=== PATIENT | female | born 1940 | race Caucasian/White ===

== ENCOUNTER 2017-02-04 06:41 | Inpatient (IN) | payer OTHER, MEDICARE ==
[2017-02-04] VITALS (10 sets, daily range): BP systolic 127–192; BP diastolic 60–79; PULSE 62–84; RESP 16–18; TEMP 97.9–98.9; O2SAT 97–99
[~2017-02-04] VITALS: Ht 162.6 cm; Wt 73.6 kg
[2017-02-04] MEDS ORDERED: AMLO5TAB2 PO (07:21)
[2017-02-04] MEDS ORDERED: HYDR12.57 PO (07:21)
[2017-02-04] MEDS ORDERED: LISI-515 PO (07:21)
[2017-02-04] MEDS ORDERED: METH2.5T PO (07:21)
[2017-02-04] MEDS ORDERED: SODIUM CHLORIDE 0.9% FLUSH 10 ML FLUSH IV FLUSH PRN ×2 (07:30→12:45)
--- NOTE | 2017-02-04 07:31 | PD ---
HPI Chief Complaint: Abdominal Pain Time Seen by Provider: 07:14 Travel History International Travel<30 days: No Contact w/Intl Traveler<30days: No Traveled to known affect area: No History of Present Illness HPI This is a 76-year-old female who presents today with complaints of abdominal pain. [employer] was offered however patient wanted to use her son and the nurse to interpret for her. Patient reports upper abdominal pain that radiates to her back. She also reports her blood pressure going up and down. When asked what that means, she reports that sometimes her blood pressure is high and sometimes it goes as low as 90 systolic. She denies any chest pain, chest pressure. She denies any shortness of breath. She denies any diarrhea. She does report mild nausea. She denies any urinary symptoms. She does state that she is depressed as she has recently lost her 5 weeks ago. PFSH Past Medical History Diminished Hearing: No Hypertension: Yes Immunizations Current: No Tetanus Vaccination: Unknown Influenza Vaccination: Yes ?: Not Menopausal: Yes Past Surgical History Cholecystectomy: Yes Social History Alcohol Use: No Tobacco Use: No Substance Use: No Allergies-Medications (Allergen,Severity, Reaction): Coded Allergies: Contrast Media (Verified Allergy, Unknown, RASHES/THROAT SWELLING, 02/04/17 ) Iodine (Verified Allergy, Unknown, RASHES/SOB , 02/04/17) Reported Meds & Prescriptions Reported Meds & Active Scripts Active Reported Lisinopril 20 Mg Tab 20 Mg PO DAILY Amlodipine (Amlodipine Besylate) 5 Mg Tab 5 Mg PO DAILY Hydrochlorothiazide 12.5 Mg Cap 12.5 Mg PO DAILY Methotrexate 2.5 Mg Tab 20 Mg PO Q7D Review of Systems Except as stated in HPI: all other systems reviewed are Neg General / Constitutional: No: Fever, Chills HENT: Positive: Headaches (she reports she had a headache 3 weeks ago. She denies headache today), Earache (left earache at times), No: Neck Stiffness, Neck Pain Cardiovascular: No: Chest Pain or Discomfort, Palpitations Respiratory: No: Cough, Shortness of Breath Gastrointestinal: Positive: Nausea, Abdominal Pain (epigastric radiating to her back. She reports it as a 8 out of 10 on the pain scale), No: Vomiting, Diarrhea Genitourinary: No: Frequency, Dysuria Musculoskeletal: No: Weakness, Pain Neurologic: Positive: Headache (3 weeks ago), No: Weakness, Dizziness, Change in Mentation Physical Exam Narrative GENERAL: Well-developed well-nourished female in no acute respiratory distress. SKIN: Focused skin assessment warm/dry. HEAD: Atraumatic. Normocephalic. EYES: Pupils equal and round. No scleral icterus. No injection or drainage. ENT: No nasal bleeding or discharge. Mucous membranes pink and moist. NECK: Trachea midline. Supple. CARDIOVASCULAR: Regular rate and rhythm. No murmur appreciated. RESPIRATORY: No accessory muscle use. Clear to auscultation. Breath sounds equal bilaterally. GASTROINTESTINAL: Abdomen soft, nondistended. The patient has subjective tenderness to palpation in her epigastrium and left and right upper abdominal area. There is no rebound. There are no pulsatile masses appreciated. MUSCULOSKELETAL: No obvious deformities. No clubbing. No cyanosis. No edema. NEUROLOGICAL: Awake and alert. No obvious cranial nerve deficits. Motor grossly within normal limits. Normal speech. Data Data Last Documented VS Vital Signs Date Time Temp Pulse Resp B/P Pulse Ox O2 Delivery O2 Flow Rate FiO2 02/04/17 11:00 66 18 127/60 98 Room Air 02/04/17 06:43 98.9 Orders Complete Blood Count With Diff (02/04/17 07:25) Comprehensive Metabolic Panel (02/04/17 07:25) Lipase (02/04/17 07:25) Urinalysis - C+S If Indicated (02/04/17 07:25) Iv Access Insert/Monitor (02/04/17 07:25) Ecg Monitoring (02/04/17 07:25) Oximetry (02/04/17 07:25) Sodium Chloride 0.9% Flush (Ns Flush) (02/04/17 07:30) Electrocardiogram (02/04/17 07:25) Chest, Single Ap (02/04/17 07:25) Ckmb (Isoenzyme) Profile (02/04/17 07:25) Troponin I (02/04/17 07:25) Oral Contrast - Adult (02/04/17 07:38) Diatrizoate Liq ( Gastroview Liq) (02/04/17 07:54) Ct Abd/Pel W/O Iv Contrast (02/04/17 07:25) Labs Laboratory Tests Test 02/04/17 02/04/17 07:50 07:55 White Blood Count 11.1 TH/MM3 Red Blood Count 4.20 MIL/MM3 Hemoglobin 12.8 GM/DL Hematocrit 39.6 % Mean Corpuscular Volume 94.1 FL Mean Corpuscular Hemoglobin 30.5 PG Mean Corpuscular Hemoglobin 32.4 % Concent Red Cell Distribution Width 15.3 % Platelet Count 243 TH/MM3 Mean Platelet Volume 9.4 FL Neutrophils (%) (Auto) 84.4 % Lymphocytes (%) (Auto) 11.3 % Monocytes (%) (Auto) 3.4 % Eosinophils (%) (Auto) 0.6 % Basophils (%) (Auto) 0.3 % Neutrophils # (Auto) 9.4 TH/MM3 Lymphocytes # (Auto) 1.3 TH/MM3 Monocytes # (Auto) 0.4 TH/MM3 Eosinophils # (Auto) 0.1 TH/MM3 Basophils # (Auto) 0.0 TH/MM3 CBC Comment DIFF FINAL Differential Comment Sodium Level 137 MEQ/L Potassium Level 4.9 MEQ/L Chloride Level 109 MEQ/L Carbon Dioxide Level 19.5 MEQ/L Anion Gap 9 MEQ/L Blood Urea Nitrogen 34 MG/DL Creatinine 1.30 MG/DL Estimat Glomerular Filtration 40 ML/MIN Rate Random Glucose 87 MG/DL Calcium Level 9.1 MG/DL Total Bilirubin 0.5 MG/DL Aspartate Amino Transf 14 U/L (AST/SGOT) Alanine Aminotransferase 18 U/L (ALT/SGPT) Alkaline Phosphatase 105 U/L Total Creatine Kinase 45 U/L Troponin I LESS THAN 0.02 NG/ML Total Protein 7.3 GM/DL Albumin 4.0 GM/DL Lipase 1686 U/L Urine Color YELLOW Urine Turbidity CLEAR Urine pH 6.5 Urine Specific [place] 1.015 Urine Protein NEG mg/dL Urine Glucose (UA) NEG mg/dL Urine Ketones NEG mg/dL Urine Occult Blood NEG Urine Nitrite NEG Urine Bilirubin NEG Urine Urobilinogen LESS THAN 2.0 MG/DL Urine Leukocyte Esterase TRACE Urine RBC LESS THAN 1 /hpf Urine WBC 3 /hpf Urine Hyaline Casts 2 /lpf Microscopic Urinalysis Comment CULT NOT INDICATED MDM Medical Decision Making Medical Screen Exam Complete: Yes Emergency Medical Condition: Yes Differential Diagnosis Pancreatitis versus diverticulitis versus AAA versus transient hypertension versus UTI Narrative Course 76-year-old female presents with abdominal pain. The patient states the pain radiates from her epigastrium down to her back. She denies any fevers, chills. Patient has pancreatitis. Patient also has acute kidney injury. There is also a pancreatic mass at the head of her pancreas noted on CT scan. The patient will be admitted to the hospital for pancreatitis. Her conditions skin and MRI and MRCP of her pancreas. This be done by the admitting physician, Dr. Mcarthur. Diagnosis Primary Impression: Acute pancreatitis Additional Impressions: Acute kidney injury Pancreatic mass Hypertension Admitting Information Admitting Physician Requests: Admit Zack Brown MD Feb 04, 2017 07:31
[2017-02-04] MEDS ORDERED: DIATRIZOATE MEGLUM/DIATRIZOATE SOD 9 ML CUP ONE (07:54)
--- NOTE | 2017-02-04 08:12 | RADRPT ---
EXAM DATE/TIME: 02/04/2017 07:55 [facility] COMPARISON: No previous studies available for comparison. INDICATIONS : Dyspnea. MEDICAL HISTORY : None. SURGICAL HISTORY : None. ENCOUNTER: Initial ACUITY: 1 day PAIN SCORE: 3/10 LOCATION: Bilateral lower chest FINDINGS: A single view of the chest demonstrates the lungs to be symmetrically aerated without evidence of mas s, infiltrate or effusion. There is hyperaeration of both lung santillan. The cardiomediastinal contour s are unremarkable. Osseous structures are intact. CONCLUSION: No acute intrathoracic disease.. Austin Reyna MD on February 04, 2017 at 8:10 Board Certified Radiologist. This report was verified electronically.
[2017-02-04 08:35] LABS: AUTOMATED NEUTROPHIL # 9.4 TH/MM3 (1.8-7.7); BASOPHIL % 0.3 % (0.0-2.0); EOSINOPHIL # 0.1 TH/MM3 (0-0.4); EOSINOPHIL % 0.6 % (0.0-4.0); HEMATOCRIT 39.6 % (35.0-46.0); HEMO FLAGS DIFF FINAL; LYMPH % 11.3 % (9.0-44.0); LYMPHOCYTE # 1.3 TH/MM3 (1.0-4.8); MEAN CELL VOLUME 94.1 FL (80.0-100.0); MEAN CORPUSCULAR HEMOGLOBIN 30.5 PG (27.0-34.0); MEAN CORPUSCULAR HGB CONC 32.4 % (32.0-36.0); MONO % 3.4 % (0.0-8.0); NEUT % 84.4 % (16.0-70.0); PLATELET COUNT 243 TH/MM3 (150-450); RED CELL DISTRIBUTION WIDTH 15.3 % (11.6-17.2); WHITE BLOOD COUNT 11.1 TH/MM3 (4.0-11.0)
[2017-02-04 08:41] LABS: BLOOD, URINE NEG (NEG); GLUCOSE,URINE NEG (NEG); HYALINE CAST, URINE 2 /lpf (RARE); KETONE, URINE NEG (NEG); NITRITE,URINE NEG (NEG); PH, URINE 6.5 (5.0-8.5); URINE COLOR YELLOW (YELLW/STRAW)
[2017-02-04 08:42] LABS: COMMENT (UR) CULT NOT INDICATED; CULTURE IF INDICATED CULT NOT INDICATED
[2017-02-04 08:55] LABS: ANION GAP 9 MEQ/L (5-15); AST (GOT) 14 U/L (15-37); BICARBONATE 19.5 MEQ/L (21.0-32.0); BLOOD UREA NITROGEN 34 MG/DL (7-18); CHLORIDE 109 MEQ/L (98-107); GLOMERULAR FILTRATION RATE 40 ML/MIN (>89); POTASSIUM 4.9 MEQ/L (3.5-5.1); SODIUM (NA) 137 MEQ/L (136-145)
[2017-02-04 08:58] LABS: ALKALINE PHOSPHATASE 105 U/L (45-117); ALT (GPT) 18 U/L (10-53); TOTAL BILIRUBIN ADULT 0.5 MG/DL (0.2-1.0)
[2017-02-04] MEDS ORDERED: DOPamine INJ PREMIX 500 ML IV SCH (09:00)
[2017-02-04] MEDS ORDERED: TERBUTALINE INJ 1 MG/ML AMP SQ PRN (09:00)
[2017-02-04 09:29] LABS: CREATINE KINASE 45 U/L (26-192)
--- NOTE | 2017-02-04 10:44 | RADRPT ---
EXAM DATE/TIME: 02/04/2017 09:42 [facility] COMPARISON: No previous studies available for comparison. INDICATIONS : Upper abdominal pain. ORAL CONTRAST: Prescribed oral contrast ingested. RADIATION DOSE: 16.26 CTDIvol (mGy) MEDICAL HISTORY : Hypertension. SURGICAL HISTORY : Cholecystectomy. ENCOUNTER: Initial ACUITY: 1 day PAIN SCALE: 5/10 LOCATION: Bilateral upper quadrant TECHNIQUE: Volumetric scanning of the abdomen and pelvis was performed. Using automated exposure control and ad justment of the mA and/or kV according to patient size, radiation dose was kept as low as reasonably achievable to obtain optimal diagnostic quality images. DICOM format image data is available electro nically for review and comparison. FINDINGS: There is evidence of a low density mass in the region of the pancreatic head and uncinate process alda suring 3.7 x 2.6 x 5.3 cm which is suspicious for pancreatic neoplasm until proven otherwise. There is dilatation of the main pancreatic duct as well as dilatation of the extrahepatic biliary system al so. MRI of the abdomen with contrast and MRCP would be helpful for confirmation of this suspicious l esion, if clinically indicated. Uncomplicated colonic diverticulosis is noted. There is no acute di verticulitis. Evaluation of the solid organs of the abdomen is limited by the lack of intravenous co ntrast. There are low density lesions within the right kidney measuring 3.5 cm and 1.3 cm consistent with probable cysts. There is a 5 mm calcified nonobstructing right renal calculus. The abdominal aorta is calcified but is not aneurysmally dilated. The inferior vena cava is normal. There is no p araaortic, retroperitoneal or mesenteric lymphadenopathy. No ascites is noted. The uterus and urina ry bladder are unremarkable. Degenerative changes are noted throughout the lumbar and lower thoracic spine. The visualized lung bases are clear. CONCLUSION: 1. Low density mass within the head and uncinate process of the pancreas measuring 3.7 x 2.6 x 5.3 c m which is suspicious for a pancreatic neoplasm until proven otherwise. MRI of the abdomen with cont rast and MRCP may be helpful for further evaluation of this finding, if clinically indicated. There i s dilatation of the main pancreatic duct as well as mild dilatation of the extrahepatic biliary syste m. 2. 5 mm calcified nonobstructing right renal calculus. 3. Right renal cysts. 4. Degenerative changes throughout the lumbar and lower thoracic spine. 5. Uncomplicated colonic diverticulosis. Kayden Talavera MD on February 04, 2017 at 10:22 Board Certified Radiologist. This report was verified electronically.
--- NOTE | 2017-02-04 12:40 | EKG ---
Date Performed: 02/04/2017 Time Performed: 07:41:10 PTAGE: 76 years EKG: Sinus rhythm NORMAL ECG INTERPRETATION BASED ON A DEFAULT AGE OF 40 YEARS NO PREVIOUS TRACING DOCTOR: Ollie Gonzalez Interpretating Date/Time 02/04/2017 12:38:39
[2017-02-04] MEDS ORDERED: NALOXONE HCL 0.4 MG/ML AMP IV PRN (12:45)
[2017-02-04] MEDS ORDERED: ACETAMINOPHEN 325 MG TAB PO PRN ×2 (12:45)
[2017-02-04] MEDS ORDERED: MORPHINE SULFATE 4 MG/ML INJ IV PRN (12:45)
[2017-02-04] MEDS: LACTATED RINGER'S 1000 ML INJ 1,000 ML IV SCH ×2 (13:38→22:33)
[2017-02-04] MEDS: ENOXAPARIN SODIUM 40 MG/0.4 ML SYRINGE SQ SCH (13:40)
[2017-02-04] MEDS: MORPHINE SULFATE 4 MG/ML INJ IV PRN ×3 (14:03→23:54)
--- NOTE | 2017-02-04 14:45 | PD.CONS ---
HPI History of Present Illness This is a 76 year old korean speaking lady who presented to the ER with abdominal pain. The pain started yesterday, in the epigastric region and radiates around the right side to the back, comes and goes, no aggravating or alleviating factors. She is nauseous but no vomiting. Denies diarrhea. She has never had this pain before. She denies any hx liver or pancreas issues. S/ p cholecystectomy. Denies ETOH. (Sophia Gaines) PFSH Past Medical History HTN Past Surgical History cholecystectomy knee replacement bilat (Sophia Gaines) Coded Allergies: Contrast Media (Verified Allergy, Unknown, RASHES/THROAT SWELLING, 02/04/17 ) Iodine (Verified Allergy, Unknown, RASHES/SOB , 02/04/17) Family History none Social History no ETOH no tobacco use no use illicit drugs (Sophia Gaines) Review of Systems Constitutional: DENIES: Fever Eyes: DENIES: Blurred vision Ears, nose, mouth, throat: DENIES: Hearing loss Respiratory: COMPLAINS OF: Cough Cardiovascular: DENIES: Chest pain Gastrointestinal: COMPLAINS OF: Abdominal pain, Nausea, DENIES: Black stools, Bloody stools, Constipation, Diarrhea, Vomiting Genitourinary: DENIES: Hematuria Musculoskeletal: DENIES: Joint Swelling Neurologic: DENIES: Abnormal gait Psychiatric: DENIES: Confusion (Sophia Gaines) GI Exam Vitals I&O Vital Signs Date Time Temp Pulse Resp B/P Pulse Ox O2 Delivery O2 Flow Rate FiO2 02/04/17 11:00 66 18 127/60 98 Room Air 02/04/17 10:04 68 18 155/70 98 Room Air 02/04/17 09:15 64 18 150/66 98 Room Air 02/04/17 08:30 62 18 192/79 98 Room Air 02/04/17 07:29 68 16 164/71 98 Room Air 02/04/17 06:43 98.9 77 16 173/77 97 Room Air Laboratory Test 02/04/17 02/04/17 07:50 07:55 White Blood Count 11.1 TH/MM3 Red Blood Count 4.20 MIL/MM3 Hemoglobin 12.8 GM/DL Hematocrit 39.6 % Mean Corpuscular Volume 94.1 FL Mean Corpuscular Hemoglobin 30.5 PG Mean Corpuscular Hemoglobin 32.4 % Concent Red Cell Distribution Width 15.3 % Platelet Count 243 TH/MM3 Mean Platelet Volume 9.4 FL Neutrophils (%) (Auto) 84.4 % Lymphocytes (%) (Auto) 11.3 % Monocytes (%) (Auto) 3.4 % Eosinophils (%) (Auto) 0.6 % Basophils (%) (Auto) 0.3 % Neutrophils # (Auto) 9.4 TH/MM3 Lymphocytes # (Auto) 1.3 TH/MM3 Monocytes # (Auto) 0.4 TH/MM3 Eosinophils # (Auto) 0.1 TH/MM3 Basophils # (Auto) 0.0 TH/MM3 CBC Comment DIFF FINAL Differential Comment Sodium Level 137 MEQ/L Potassium Level 4.9 MEQ/L Chloride Level 109 MEQ/L Carbon Dioxide Level 19.5 MEQ/L Anion Gap 9 MEQ/L Blood Urea Nitrogen 34 MG/DL Creatinine 1.30 MG/DL Estimat Glomerular Filtration 40 ML/MIN Rate Random Glucose 87 MG/DL Calcium Level 9.1 MG/DL Total Bilirubin 0.5 MG/DL Aspartate Amino Transf 14 U/L (AST/SGOT) Alanine Aminotransferase 18 U/L (ALT/SGPT) Alkaline Phosphatase 105 U/L Total Creatine Kinase 45 U/L Troponin I LESS THAN 0.02 NG/ML Total Protein 7.3 GM/DL Albumin 4.0 GM/DL Lipase 1686 U/L Urine Color YELLOW Urine Turbidity CLEAR Urine pH 6.5 Urine Specific [place] 1.015 Urine Protein NEG mg/dL Urine Glucose (UA) NEG mg/dL Urine Ketones NEG mg/dL Urine Occult Blood NEG Urine Nitrite NEG Urine Bilirubin NEG Urine Urobilinogen LESS THAN 2.0 MG/DL Urine Leukocyte Esterase TRACE Urine RBC LESS THAN 1 /hpf Urine WBC 3 /hpf Urine Hyaline Casts 2 /lpf Microscopic Urinalysis Comment CULT NOT INDICATED Physical Examination HEENT: Pupils round and reactive to light; normocephalic; atraumatic; no jaundice. Throat is clear. NECK: Neck is supple, no JVD, no lymphadenopathy. CHEST: Chest is clear to auscultation and percussion. CARDIAC: Regular rate and rhythm with no murmur gallop or rubs. ABDOMEN: Soft, nondistended, nontender; no hepatosplenomegaly; bowel sounds are present in all four quadrants. EXTREMITIES: No clubbing, cyanosis, or edema. SKIN: Normal; no rash; no jaundice. 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 (Sophia Gaines) Assessment and Plan Plan ASSESSMENT - abdominal pain, nausea - onset 1d ago. radiates to the back. CT showed pancreatic head mass, dilatation main pancreatic duct and extrahepatic biliary system. MRCP pending LFTs WNL. s/p cholecystectomy - elevated lipase - 1686 on admission. denies hx pancreatitis, ETOH PLAN - NPO - await MRCP - CA 19-9, CEA - consider ERCP vs EUS - supportive care - monitor labs - pain control - further recommendations to follow This pt seen by myself and Dr Westfall and this note is written on his behalf (Sophia Gaines) Physician Comments Patient seen and examined Agree with above Continue with current supportive care Monitor labs Most likely will pursue EUS tomorrow (Damon Westfall MD) Sophia Gaines Feb 04, 2017 14:45 Damon Westfall MD Feb 04, 2017 19:57
[2017-02-04] MEDS: ONDANSETRON HCL 4 MG/2 ML VIAL IVP PRN (20:19)
[2017-02-04] MEDS: SODIUM CHLORIDE 0.9% FLUSH 10 ML FLUSH IV FLUSH SCH (20:20)
[2017-02-05] VITALS (7 sets, daily range): BP systolic 132–172; BP diastolic 63–78; PULSE 59–71; RESP 16–20; TEMP 96.9–98.4; O2SAT 95–100
[2017-02-05] MEDS: MORPHINE SULFATE 4 MG/ML INJ IV PRN ×4 (04:20→21:59)
[2017-02-05] MEDS: ONDANSETRON HCL 4 MG/2 ML VIAL IVP PRN ×3 (04:21→18:06)
[2017-02-05 08:33] LABS: ALT (GPT) 18 U/L (10-53); ANION GAP 7 MEQ/L (5-15); AST (GOT) 13 U/L (15-37); BICARBONATE 24.1 MEQ/L (21.0-32.0); BLOOD UREA NITROGEN 26 MG/DL (7-18); CHLORIDE 107 MEQ/L (98-107); POTASSIUM 4.8 MEQ/L (3.5-5.1); SODIUM (NA) 138 MEQ/L (136-145)
[2017-02-05 08:36] LABS: ALKALINE PHOSPHATASE 90 U/L (45-117); INDIRECT BILIRUBIN 0.5 MG/DL (0.0-0.8); TOTAL BILIRUBIN ADULT 0.6 MG/DL (0.2-1.0)
[2017-02-05] MEDS: SODIUM CHLORIDE 0.9% FLUSH 10 ML FLUSH IV FLUSH SCH ×2 (08:37→21:00)
[2017-02-05] MEDS: LACTATED RINGER'S 1000 ML INJ 1,000 ML IV SCH ×2 (08:37→22:05)
[2017-02-05] MEDS ORDERED: PROPOFOL 200 MG/20 ML AMP IV ONE (10:47)
[2017-02-05] MEDS ORDERED: LEVOFLOXACIN 500 MG PREMIX INJ 100 ML IV ONE (11:06)
[2017-02-05] MEDS ORDERED: DO NOT ADM ANY ANTICOAGULANT DRUGS PRN (11:17)
[2017-02-05] MEDS ORDERED: *morphine SULFATE 8 MG/ML PERIprocedure ONLY ONE (11:30)
--- NOTE | 2017-02-05 12:13 | PD.PROCEDR ---
GI Procedure REFERRING PHYSICIAN BELL PROCEDURE PERFORMED EUS with FNA INDICATION FOR PROCEDURE Pancreatic head mass PROCEDURE: The procedure, risks and benefits were discussed with Ms. Bloom and informed consent was obtained. Anesthesia sedated her with Diprivan. She was placed in the left lateral decubitus position. EUS: The Pentax videoscope was introduced through the oropharynx and advanced to the stomach. FINDINGS: The linear endoscopic ultrasound scope was used there was a hypoechoic mass in the head of the pancreas measuring at least 2.5 cm on one axis we were able to obtain good sampling with a fine-needle aspiration No lymphadenopathy noted No vascular invasion noted ESTIMATED BLOOD LOSS: None SPECIMENS REMOVED: Fine-needle aspiration of the pancreatic head mass COMPLICATIONS: None IMPRESSION: Pancreatic head mass hypoechoic probable malignancy no lymphadenopathy and no vascular involvement PLAN: Await biopsy Continue supportive care Damon Westfall MD Feb 05, 2017 12:13
[2017-02-05] MEDS: ENOXAPARIN SODIUM 40 MG/0.4 ML SYRINGE SQ SCH (12:49)
[2017-02-05] MEDS: HYDROCHLOROTHIAZIDE 12.5 MG CAP PO SCH (12:49)
[2017-02-05] MEDS: LISINOPRIL 20 MG TAB PO SCH (12:49)
[2017-02-05] MEDS: amLODIPine BESYLATE 5 MG TAB PO SCH (12:49)
--- NOTE | 2017-02-05 14:53 | HHI.HP ---
[facility] Primary Care Physician No Primary Care Physician Admission Diagnosis acute pancreatitis, pancreatic mass Diagnoses: (1) Acute pancreatitis Diagnosis: Principal (2) Pancreatic mass Diagnosis: Principal Chief Complaint: Abdominal pain Travel History International Travel<30 Days: No Contact w/Intl Traveler <30 Da: No Traveled to Known Affected Are: No History of Present Illness 76-year-old female with a history hypertension presents emergency room completed a 4 day history of worsening epigastric pain and describes the pain as a bandlike pain radiating from her back over through her right upper abdomen area to the epigastric area. She reports associated nausea and vomiting associated with the abdominal pain. She also reports a four-day history of constipation not having a bowel movement. She denies any unusual food intake. She has not had any fevers or chills. Review of Systems Constitutional: COMPLAINS OF: Change in appetite, DENIES: Fatigue, Fever, Chills Endocrine: DENIES: Heat/cold intolerance Eyes: DENIES: Blurred vision, Eye pain, Vision loss Ears, nose, mouth, throat: DENIES: Hearing loss, Nasal discharge, Throat pain, Ear Pain, Sinus Pain Respiratory: DENIES: Cough, Shortness of breath Cardiovascular: DENIES: Chest pain, Palpitations, Dyspnea on Exertion, Lower Extremity Edema Gastrointestinal: COMPLAINS OF: Abdominal pain, Constipation, Nausea, Vomiting , Anorexia, DENIES: Black stools, Bloody stools, Diarrhea Genitourinary: DENIES: Dysuria Musculoskeletal: DENIES: Joint pain, Muscle aches, Stiffness Integumentary: DENIES: Rash Hematologic/lymphatic: DENIES: Bruising, Lymphadenopathy Immunologic/allergic: DENIES: Eczema Neurologic: DENIES: Headache, Localized weakness, Paresthesias Psychiatric: DENIES: Anxiety, Depression, Suicidal Ideation Past Family Social History Past Medical History HTN Asthma GERD Past Surgical History cholecystectomy knee replacement bilat Reported Medications Lisinopril 20 Mg Tab 20 Mg PO DAILY Amlodipine (Amlodipine Besylate) 5 Mg Tab 5 Mg PO DAILY Hydrochlorothiazide 12.5 Mg Cap 12.5 Mg PO DAILY Methotrexate 2.5 Mg Tab 20 Mg PO Q7D Allergies: Coded Allergies: Contrast Media (Verified Allergy, Unknown, RASHES/THROAT SWELLING, 02/04/17 ) Iodine (Verified Allergy, Unknown, RASHES/SOB , 02/04/17) Family History none Social History no ETOH no tobacco use no use illicit drugs Physical Exam Vital Signs Vital Signs Date Time Temp Pulse Resp B/P Pulse Ox O2 Delivery O2 Flow Rate FiO2 02/05/17 13:30 96.9 61 16 155/75 100 02/05/17 12:00 97.6 59 132/63 95 02/05/17 11:45 64 12 140/66 96 Room Air 02/05/17 11:30 63 12 162/65 97 Room Air 02/05/17 11:23 98.2 64 12 149/94 96 Room Air 02/05/17 08:00 97.2 69 20 156/70 98 02/05/17 04:38 97.5 71 18 172/78 99 02/05/17 00:38 97.8 67 16 135/65 99 02/04/17 20:38 98.0 69 16 144/67 98 02/04/17 17:40 100 02/04/17 17:30 97.9 84 18 145/63 97 02/04/17 17:00 74 16 152/67 98 Room Air 02/04/17 16:00 99 Physical Exam GENERAL: This is a well-nourished, well-developed patient, in no apparent distress. SKIN: No rashes, ecchymoses or lesions. Cool and dry. HEAD: Atraumatic. Normocephalic. No temporal or scalp tenderness. EYES: Pupils equal round and reactive. Extraocular motions intact. No scleral icterus. No injection or drainage. ENT: Nose without bleeding, purulent drainage or septal hematoma. Throat without erythema, tonsillar hypertrophy or exudate. Uvula midline. Airway patent. NECK: Trachea midline. No JVD or lymphadenopathy. Supple, nontender, no meningeal signs. CARDIOVASCULAR: Regular rate and rhythm RESPIRATORY: Clear to auscultation. Breath sounds equal bilaterally. No wheezes , rales, or rhonchi. GASTROINTESTINAL: Abdomen soft, epigastric tenderness mild right upper quadrant tenderness no rebound guarding, nondistended. No hepato-splenomegaly, or palpable masses. No guarding. MUSCULOSKELETAL: Extremities without clubbing, cyanosis, or edema. No joint tenderness, effusion, or edema noted. NEUROLOGICAL: Awake and alert to person place and time. Cranial nerves II through XII intact. Motor and sensory grossly within normal limits. Five out of 5 muscle strength in all muscle groups. Normal speech. Laboratory Item Value Date Time CA 19-9 Antigen 19.1 U/ML 02/05/1740 Carcinoembryonic Antigen 1.2 NG/ML 02/05/1740 Laboratory Tests Test 02/05/17 06:40 Sodium Level 138 Potassium Level 4.8 Chloride Level 107 Carbon Dioxide Level 24.1 Anion Gap 7 Blood Urea Nitrogen 26 Creatinine 1.05 Random Glucose 96 Calcium Level 8.7 Total Bilirubin 0.6 Direct Bilirubin 0.1 Indirect Bilirubin 0.5 Aspartate Amino Transf 13 (AST/SGOT) Alanine Aminotransferase 18 (ALT/SGPT) Alkaline Phosphatase 90 Total Protein 6.0 Albumin 3.2 Lipase 5455 Carcinoembryonic Antigen 1.2 CA 19-9 Antigen 19.1 Result Diagram: 02/04/17 0750 02/05/17639 Imaging Last Impressions Chest X-Ray 02/04/17724 Signed Impressions: Service Date/Time: January 07:55 - CONCLUSION: No acute intrathoracic disease.. Austin Reyna MD Abdomen/Pelvis CT 02/04/17724 Signed Impressions: Service Date/Time: January 09:42 - CONCLUSION: 1. Low density mass within the head and uncinate process of the pancreas measuring 3.7 x 2.6 x 5.3 cm which is suspicious for a pancreatic neoplasm until proven otherwise. MRI of the abdomen with contrast and MRCP may be helpful for further evaluation of this finding, if clinically indicated. There is dilatation of the main pancreatic duct as well as mild dilatation of the extrahepatic biliary system. 2. 5 mm calcified nonobstructing right renal calculus. 3. Right renal cysts. 4. Degenerative changes throughout the lumbar and lower thoracic spine. 5. Uncomplicated colonic diverticulosis. Kayden Talavera MD Assessment and Plan Problem List: (1) Acute pancreatitis ICD Code: K85.90 Status: Acute (2) Pancreatic mass ICD Code: K86.9 Status: Acute Assessment and Plan 1. Acute biliary pancreatitis likely due to underlying pancreatic mass. IV fluid hydration supportive care patient is placed on clear liquids overnight and GI consultation place. An EUS with fine-needle aspiration performed on pancreatic mass highly suspicious of malignancy. Continue pain control supportive care, await biopsy. CA-19-9 and CEA levels reviewed. Further recommendations per GI. 2. Hypertension, essentialuncontrolled likely suffered by pain. Restart home antihypertensives and add Vasotec IV when necessary for any uncontrolled pain. 3. History of GERDcontinue PPI 4. DVT prophylaxisLovenox. Physician Certification 2 Midnight Certification Type: Admission for Inpatient Services Order for Inpatient Services The services are ordered in accordance with Medicare regulations or non- Medicare payer requirements, as applicable. In the case of services not specified as inpatient-only, they are appropriately provided as inpatient services in accordance with the 2-midnight benchmark. Estimated LOS (days): 3 days is the estimated time the patient will need to remain in the hospital, assuming treatment plan goals are met and no additional complications. Post-Hospital Plan: Not yet determined Problem Qualifiers (1) Acute pancreatitis: Kera Mcarthur MD Feb 05, 2017 14:53
[2017-02-05] MEDS ORDERED: ENALAPRILAT 1.25 MG/ML VIAL IV PRN (15:00)
[2017-02-05 15:07] LABS: CREATINE KINASE 48 U/L (26-192)
[2017-02-05] MEDS ORDERED: SENNOSIDES 8.6 MG TAB PO PRN (17:00)
[2017-02-05] MEDS ORDERED: MAGNESIUM HYDROXIDE SUSP 30 ML CUP PO PRN (17:00)
[2017-02-05] MEDS ORDERED: LACTULOSE SYRUP 20 GM/30 ML CUP PO PRN (17:00)
[2017-02-05] MEDS ORDERED: MAGNESIUM HYDROXIDE SUSP 30 ML CUP PO ONE (17:15)
[2017-02-05] MEDS: BISACODYL 10 MG SUPP RECTAL PRN (18:06)
--- NOTE | 2017-02-05 18:11 | RADRPT ---
EXAM DATE/TIME: 02/05/2017 17:14 [place] COMPARISON: CT ABDOMEN & PELVIS W/O CONTRAST, February 04, 2017, 9:42. INDICATIONS : Pancreatic mass. CONTRAST: 15 cc Multihance (gadobenate) IV MEDICAL HISTORY : Hypertension. SURGICAL HISTORY : Cholecystectomy. Knee replacement. ENCOUNTER: Initial ACUITY: 1 day PAIN SCORE: 5/10 LOCATION: Upper abdomen TECHNIQUE: Multiplanar, multisequence magnetic resonance imaging of the abdomen was performed. High-resolution 3D dataset was utilized to reconstruct maximum-intensity projection (MIP) images. FINDINGS: There is a multiseptated cystic mass in the region of the uncinate process measures 3.5 cm in si ze. There is dilatation of the pancreatic duct measures 1.2 cm and common bile duct measures 2.1 cm w ith dilatation of the intrahepatic ducts. There is an approximate 1.7 cm area of enhancing nodule adj acent to this mass may be part of this mass. The liver, spleen, adrenals are unremarkable. There are cysts in the kidneys the largest one on the right measures 2.6 cm in size. CONCLUSION: Multiseptated mass in the head of the pancreas in the region of the uncinate process with slight nodu lar enhancement adjacent to it. Underlying cystic neoplasm should be excluded such as IMPN. K. Jagdeep Choudhary MD on February 05, 2017 at 18:05 Board Certified Radiologist. This report was verified electronically.
[2017-02-05] MEDS ORDERED: GADOBENATE DIM PF 529 MG/ML 20ML VIAL (for RAD MRI) IV ONE (18:13)
[2017-02-05] MEDS: DOCUSATE SODIUM 50 MG/SENNA 8.6 MG TAB PO SCH (21:59)
[2017-02-06] VITALS (9 sets, daily range): BP systolic 117–150; BP diastolic 55–72; PULSE 67–76; RESP 16–18; TEMP 97.6–98.9; O2SAT 95–98
[2017-02-06] MEDS: MORPHINE SULFATE 4 MG/ML INJ IV PRN ×3 (01:49→11:32)
[2017-02-06] MEDS: LACTATED RINGER'S 1000 ML INJ 1,000 ML IV SCH ×2 (05:48→14:33)
[2017-02-06] MEDS: ONDANSETRON HCL 4 MG/2 ML VIAL IVP PRN ×3 (05:50→19:06)
[2017-02-06 08:00] LABS: HEMATOCRIT 34.8 % (35.0-46.0); MEAN CELL VOLUME 91.8 FL (80.0-100.0); MEAN CORPUSCULAR HEMOGLOBIN 31.1 PG (27.0-34.0); MEAN CORPUSCULAR HGB CONC 33.9 % (32.0-36.0); PLATELET COUNT 322 TH/MM3 (150-450); RED BLOOD COUNT 3.79 MIL/MM3 (4.00-5.30); RED CELL DISTRIBUTION WIDTH 14.5 % (11.6-17.2); REVIEW FLAG FINAL; WHITE BLOOD COUNT 15.9 TH/MM3 (4.0-11.0)
[2017-02-06 08:31] LABS: ALKALINE PHOSPHATASE 175 U/L (45-117); ALT (GPT) 254 U/L (10-53); ANION GAP 8 MEQ/L (5-15); AST (GOT) 417 U/L (15-37); BICARBONATE 27.1 MEQ/L (21.0-32.0); BLOOD UREA NITROGEN 16 MG/DL (7-18); CHLORIDE 95 MEQ/L (98-107); GLOMERULAR FILTRATION RATE 58 ML/MIN (>89); POTASSIUM 4.1 MEQ/L (3.5-5.1); SODIUM (NA) 130 MEQ/L (136-145); TOTAL BILIRUBIN ADULT 2.5 MG/DL (0.2-1.0)
[2017-02-06] MEDS: LISINOPRIL 20 MG TAB PO SCH (09:31)
[2017-02-06] MEDS: HYDROCHLOROTHIAZIDE 12.5 MG CAP PO SCH (09:31)
[2017-02-06] MEDS: amLODIPine BESYLATE 5 MG TAB PO SCH (09:31)
[2017-02-06] MEDS: DOCUSATE SODIUM 50 MG/SENNA 8.6 MG TAB PO SCH ×2 (09:32→20:22)
[2017-02-06] MEDS: SODIUM CHLORIDE 0.9% FLUSH 10 ML FLUSH IV FLUSH SCH ×2 (09:32→20:19)
[2017-02-06] MEDS: ACETAMINOPHEN/HYDROcodone 325 MG/7.5 MG TAB PO PRN ×2 (09:32→19:11)
[2017-02-06] MEDS: PROMETHAZINE HCL 25 MG TAB PO PRN (11:31)
[2017-02-06] MEDS: ENOXAPARIN SODIUM 40 MG/0.4 ML SYRINGE SQ SCH (11:31)
--- NOTE | 2017-02-06 14:05 | HHI.GIFU ---
Subjective Remarks Patient is sitting in bed eating lunch, accompanied by family. Reports nausea, abd pain but no vomiting (Tona,Wen DUEÑAS) Objective Vitals I&O Vital Signs Date Time Temp Pulse Resp B/P Pulse Ox O2 Delivery O2 Flow Rate FiO2 02/06/17 12:38 98.9 67 18 117/55 95 02/06/17 08:00 73 02/06/17 08:00 97.6 68 18 130/64 98 02/06/17 04:38 98.2 73 16 150/72 97 02/06/17 04:00 71 02/06/17 00:38 98.3 69 16 133/60 98 02/06/17 00:00 69 02/05/17 20:38 98.4 62 16 139/68 100 02/05/17 20:12 68 I/O 02/05/17 02/05/17 02/05/17 02/06/17 02/06/17 02/06/17 07:00 15:00 23:00 07:00 15:00 23:00 Intake Total 520 ml 800 ml 800 ml Balance 520 ml 800 ml 800 ml Intake Oral 120 ml IV Total 800 ml 800 ml Other 400 ml # Voids 2 2 1 2 Laboratory Laboratory Tests Test 02/06/17 06:46 White Blood Count 15.9 Red Blood Count 3.79 Hemoglobin 11.8 Hematocrit 34.8 Mean Corpuscular Volume 91.8 Mean Corpuscular Hemoglobin 31.1 Mean Corpuscular Hemoglobin 33.9 Concent Red Cell Distribution Width 14.5 Platelet Count 322 Mean Platelet Volume 8.3 Sodium Level 130 Potassium Level 4.1 Chloride Level 95 Carbon Dioxide Level 27.1 Anion Gap 8 Blood Urea Nitrogen 16 Creatinine 0.94 Estimat Glomerular Filtration 58 Rate Random Glucose 96 Calcium Level 8.5 Total Bilirubin 2.5 Aspartate Amino Transf 417 (AST/SGOT) Alanine Aminotransferase 254 (ALT/SGPT) Alkaline Phosphatase 175 Total Protein 6.3 Albumin 3.2 Lipase 3995 Imaging Last Impressions Cholangiopancreatography MRI 02/05/17 0000 Signed Impressions: Service Date/Time: Sunday, February 05, 2017 17:14 - CONCLUSION: Multiseptated mass in the head of the pancreas in the region of the uncinate process with slight nodular enhancement adjacent to it. Underlying cystic neoplasm should be excluded such as IMPN. K. Jagdeep Choudhary MD Chest X-Ray 02/04/17724 Signed Impressions: Service Date/Time: January 07:55 - CONCLUSION: No acute intrathoracic disease.. Austin Reyna MD Abdomen/Pelvis CT 02/04/17724 Signed Impressions: Service Date/Time: January 09:42 - CONCLUSION: 1. Low density mass within the head and uncinate process of the pancreas measuring 3.7 x 2.6 x 5.3 cm which is suspicious for a pancreatic neoplasm until proven otherwise. MRI of the abdomen with contrast and MRCP may be helpful for further evaluation of this finding, if clinically indicated. There is dilatation of the main pancreatic duct as well as mild dilatation of the extrahepatic biliary system. 2. 5 mm calcified nonobstructing right renal calculus. 3. Right renal cysts. 4. Degenerative changes throughout the lumbar and lower thoracic spine. 5. Uncomplicated colonic diverticulosis. Kayden Talavera MD Physical Exam HEENT: normocephalic; atraumatic; no jaundice. Throat is clear. NECK: Neck is supple, no JVD, no lymphadenopathy. CHEST: Chest is clear to auscultation and percussion. CARDIAC: Regular rate and rhythm with no murmur gallop or rubs. ABDOMEN: Soft, nondistended, diffused tenderness; no hepatosplenomegaly; bowel sounds are present in all four quadrants. EXTREMITIES: No clubbing, cyanosis, or edema. SKIN: Normal; no rash; no jaundice. SYSTEMS NAVIGATOR: No focal deficits; alert and oriented times three. (Tona,Wen [facility]) Assessment and Plan Plan ASSESSMENT - Pancreatic head mass- abdominal pain, nausea - onset 1d ago. CEA 1.2, CA19- 9 19.1 S/P EUS on (02/05/17) --->Pancreatic head mass hypoechoic probable malignancy no lymphadenopathy and no vascular involvement FNA, cytology pending Cholangiopancreatography MRI 02/05/17 Multiseptated mass in the head of the pancreas in the region of the uncinate process with slight nodular enhancement adjacent to it. Underlying cystic neoplasm should be excluded such as IMPN. CT showed pancreatic head mass, dilatation main pancreatic duct and extrahepatic biliary system. s/p cholecystectomy - Elevated LFTs- These were normal yesterday, but today marked elevation AST 417, ALT 254, ALP 175. Possible secondary to procedure, will monitor - elevated lipase - 1686 on admission, today 3995, this is a decrease from yesterday denies hx pancreatitis, ETOH - Leukocytosis- worsening, possibly secondary to recent procedure PLAN - Low fat diet - Await FNA results - supportive care - Lipase, LFTs, in am - pain control - further recommendations to follow This pt seen by myself and Dr Westfall and this note is written on his behalf (Wen Carbone) Physician Comments Patient seen and examined Agree with above Continue with current supportive care Monitor labs Await pathology (Damon Westfall MD) Wen Carbone Feb 06, 2017 14:05 Damon Westfall MD Feb 06, 2017 18:41
--- NOTE | 2017-02-06 16:21 | EKG ---
Date Performed: 02/05/2017 Time Performed: 13:33:58 PTAGE: 76 years EKG: Sinus rhythm NORMAL ECG PREVIOUS TRACING : 02/04/2017 07.41 Since previous tracing, no significant change. DOCTOR: Enrique Hood Interpretating Date/Time 02/06/2017 16:20:51
--- NOTE | 2017-02-06 17:56 | HHI.PR ---
Subjective Remarks Patient seen this morning. Patient states that abdominal pain about the same as yesterday. Denies any chest pain or shortness of breath. Objective Vital Signs Date Time Temp Pulse Resp B/P Pulse Ox O2 Delivery O2 Flow Rate FiO2 02/06/17 16:38 98.8 69 18 132/67 95 02/06/17 15:53 76 02/06/17 12:38 98.9 67 18 117/55 95 02/06/17 08:00 73 02/06/17 08:00 97.6 68 18 130/64 98 02/06/17 04:38 98.2 73 16 150/72 97 02/06/17 04:00 71 02/06/17 00:38 98.3 69 16 133/60 98 02/06/17 00:00 69 02/05/17 20:38 98.4 62 16 139/68 100 02/05/17 20:12 68 I/O 02/05/17 02/05/17 02/05/17 02/06/17 02/06/17 02/06/17 07:00 15:00 23:00 07:00 15:00 23:00 Intake Total 520 ml 800 ml 800 ml Output Total 300 ml Balance 520 ml 800 ml 800 ml -300 ml Intake Oral 120 ml IV Total 800 ml 800 ml Other 400 ml Output Urine Total 300 ml # Voids 2 2 1 2 Result Diagram: 02/06/1746 02/06/1746 Objective Remarks GENERAL: Patient sitting up in bed. No acute distress. SKIN: Warm and dry. HEAD: Normocephalic. EYES: No scleral icterus. No injection or drainage. NECK: Supple, trachea midline. No JVD. CARDIOVASCULAR: Regular rate and rhythm without murmurs, gallops, or rubs. RESPIRATORY: Breath sounds equal bilaterally. No accessory muscle use. GASTROINTESTINAL: Abdomen soft, non-tender, nondistended. No rebound or guarding. MUSCULOSKELETAL: No cyanosis, or edema. BACK: Nontender without obvious deformity. No CVA tenderness. A/P Assessment and Plan //Acute biliary pancreatitis likely due to underlying pancreatic mass. -Continue IV fluid hydration supportive care. -02/05 An EUS with fine-needle aspiration performed on pancreatic mass highly suspicious of malignancy. -Continue pain control supportive care, await biopsy. CA-19-9 and CEA levels reviewed. -GI following. Appreciate assistance. //Hypertension, essentialuncontrolled on admission likely exacerbated by pain. -02/06. Blood pressure acceptable. Continue home antihypertensives. Continue Vasotec IV when necessary for any uncontrolled pain. //Leukocytosis. White blood cell up to 15.9 today. Likely secondary to stress from EUS with FNA. //History of GERDcontinue PPI //Hypernatremia. Sodium 130 today. We'll switch from lactated Ringer's to normal saline. Recheck tomorrow // DVT prophylaxisLovenox. Discharge Planning When cleared by GI. Cytology still pending. Ravi Richards MD Feb 06, 2017 17:56
[2017-02-06] MEDS: SODIUM CHLOR 0.9% 1000 ML INJ 1,000 ML IV SCH (18:00)
[2017-02-06] MEDS: PANTOPRAZOLE SOD 40 MG DELAYED RELEASE TAB PO SCH (18:00)
[2017-02-07] VITALS (9 sets, daily range): BP systolic 108–135; BP diastolic 56–75; PULSE 63–99; RESP 17–18; TEMP 97.3–98.9; O2SAT 96–99
[2017-02-07] MEDS: SODIUM CHLOR 0.9% 1000 ML INJ 1,000 ML IV SCH ×2 (05:55→07:12)
[2017-02-07 06:53] LABS: AUTOMATED NEUTROPHIL # 8.5 TH/MM3 (1.8-7.7); BASOPHIL % 0.1 % (0.0-2.0); EOSINOPHIL # 0.1 TH/MM3 (0-0.4); EOSINOPHIL % 0.6 % (0.0-4.0); HEMATOCRIT 35.4 % (35.0-46.0); HEMO FLAGS DIFF FINAL; LYMPHOCYTE # 0.7 TH/MM3 (1.0-4.8); MEAN CELL VOLUME 92.7 FL (80.0-100.0); MEAN CORPUSCULAR HEMOGLOBIN 30.9 PG (27.0-34.0); MEAN CORPUSCULAR HGB CONC 33.3 % (32.0-36.0); MONO % 5.8 % (0.0-8.0); NEUT % 86.5 % (16.0-70.0); PLATELET COUNT 286 TH/MM3 (150-450); RED BLOOD COUNT 3.81 MIL/MM3 (4.00-5.30); RED CELL DISTRIBUTION WIDTH 14.7 % (11.6-17.2); WHITE BLOOD COUNT 9.8 TH/MM3 (4.0-11.0)
[2017-02-07 07:10] LABS: MAGNESIUM 2.2 MG/DL (1.5-2.5); POTASSIUM 4.7 MEQ/L (3.5-5.1)
[2017-02-07 07:14] LABS: INDIRECT BILIRUBIN 0.5 MG/DL (0.0-0.8); TOTAL BILIRUBIN ADULT 0.9 MG/DL (0.2-1.0)
[2017-02-07] MEDS: SODIUM CHLORIDE 0.9% FLUSH 10 ML FLUSH IV FLUSH SCH ×2 (09:00→19:59)
--- NOTE | 2017-02-07 09:07 | HHI.PR ---
Subjective Remarks No acute events overnight. AVSS. Patient with no complaints this morning. Tolerating PO. States her abdominal pain is improving. Objective Vitals Vital Signs Date Time Temp Pulse Resp B/P Pulse Ox O2 Delivery O2 Flow Rate FiO2 02/07/17 08:43 98.0 63 18 133/70 98 02/07/17 04:00 98.5 65 18 112/56 96 02/07/17 00:00 98.9 66 17 135/63 96 02/06/17 20:11 16 02/06/17 20:00 98.8 71 18 142/71 97 02/06/17 16:38 98.8 69 18 132/67 95 02/06/17 15:53 76 02/06/17 12:38 98.9 67 18 117/55 95 I/O 02/06/17 02/06/17 02/06/17 02/07/17 02/07/17 02/07/17 07:00 15:00 23:00 07:00 15:00 23:00 Intake Total 800 ml 120 ml 120 ml 820 ml Output Total 300 ml Balance 800 ml -180 ml 120 ml 820 ml Intake Oral 120 ml 120 ml IV Total 800 ml 820 ml Output Urine Total 300 ml # Voids 2 2 1 # Bowel Movements 0 0 Result Diagram: 02/07/17 0603 02/07/17 0603 Objective Remarks GENERAL: Patient sitting up in bed. No acute distress. SKIN: Warm and dry. HEAD: Normocephalic. EYES: No scleral icterus. No injection or drainage. NECK: Supple, trachea midline. No JVD. CARDIOVASCULAR: Regular rate and rhythm without murmurs, gallops, or rubs. RESPIRATORY: Breath sounds equal bilaterally. No accessory muscle use. GASTROINTESTINAL: Abdomen soft, non-tender, nondistended. No rebound or guarding. MUSCULOSKELETAL: No cyanosis, or edema. BACK: Nontender without obvious deformity. No CVA tenderness. A/P Problem List: (1) Acute pancreatitis ICD Code: K85.90 Status: Acute (2) Pancreatic mass ICD Code: K86.9 Status: Acute Assessment and Plan //Acute biliary pancreatitis likely due to underlying pancreatic mass. -Tolerating PO, DC IVFs -02/05 An EUS with fine-needle aspiration performed on pancreatic mass highly suspicious of malignancy. -Continue pain control supportive care, await biopsy. CA-19-9 and CEA levels reviewed. -GI following. Appreciate assistance. //Hypertension, essentialuncontrolled on admission likely exacerbated by pain. -02/06. Blood pressure acceptable. Continue home antihypertensives. Continue Vasotec IV when necessary for any uncontrolled pain. //Leukocytosis. Resolved. Likely secondary to stress from EUS with FNA. //History of GERDcontinue PPI //Hypernatremia. Resolved. // DVT prophylaxisLovenox. Discharge Planning When cleared by GI. Awaiting biopsy/cytology. Problem Qualifiers (1) Acute pancreatitis: Cara Mcdonough MD R3 Feb 07, 2017 09:07
[2017-02-07] MEDS: amLODIPine BESYLATE 5 MG TAB PO SCH (09:14)
[2017-02-07] MEDS: LISINOPRIL 20 MG TAB PO SCH (09:15)
[2017-02-07] MEDS: HYDROCHLOROTHIAZIDE 12.5 MG CAP PO SCH (09:15)
[2017-02-07] MEDS: DOCUSATE SODIUM 50 MG/SENNA 8.6 MG TAB PO SCH ×2 (09:16→21:00)
[2017-02-07] MEDS: PANTOPRAZOLE SOD 40 MG DELAYED RELEASE TAB PO SCH (09:16)
[2017-02-07] MEDS: PROMETHAZINE HCL 25 MG TAB PO PRN (09:21)
--- NOTE | 2017-02-07 12:10 | HHI.GIFU ---
Subjective Remarks Lying in bed in no apparent distress. Family member present at bedside. States abdominal pain improving. No nausea or vomiting. Tolerating diet. (Apolonia Aggarwal) Objective Vitals I&O Vital Signs Date Time Temp Pulse Resp B/P Pulse Ox O2 Delivery O2 Flow Rate FiO2 02/07/17 08:43 98.0 63 18 133/70 98 02/07/17 04:00 98.5 65 18 112/56 96 02/07/17 00:00 98.9 66 17 135/63 96 02/06/17 20:11 16 02/06/17 20:00 98.8 71 18 142/71 97 02/06/17 16:38 98.8 69 18 132/67 95 02/06/17 15:53 76 02/06/17 12:38 98.9 67 18 117/55 95 I/O 02/06/17 02/06/17 02/06/17 02/07/17 02/07/17 02/07/17 06:59 14:59 22:59 06:59 14:59 22:59 Intake Total 800 ml 120 ml 120 ml 820 ml Output Total 300 ml Balance 800 ml -180 ml 120 ml 820 ml Intake Oral 120 ml 120 ml IV Total 800 ml 820 ml Output Urine Total 300 ml # Voids 2 2 1 # Bowel Movements 0 0 Laboratory Laboratory Tests Test 02/07/17 06:03 White Blood Count 9.8 Red Blood Count 3.81 Hemoglobin 11.8 Hematocrit 35.4 Mean Corpuscular Volume 92.7 Mean Corpuscular Hemoglobin 30.9 Mean Corpuscular Hemoglobin 33.3 Concent Red Cell Distribution Width 14.7 Platelet Count 286 Mean Platelet Volume 7.6 Neutrophils (%) (Auto) 86.5 Lymphocytes (%) (Auto) 7.0 Monocytes (%) (Auto) 5.8 Eosinophils (%) (Auto) 0.6 Basophils (%) (Auto) 0.1 Neutrophils # (Auto) 8.5 Lymphocytes # (Auto) 0.7 Monocytes # (Auto) 0.6 Eosinophils # (Auto) 0.1 Basophils # (Auto) 0.0 CBC Comment DIFF FINAL Differential Comment Sodium Level 136 Potassium Level 4.7 Chloride Level 102 Carbon Dioxide Level 28.0 Anion Gap 6 Blood Urea Nitrogen 16 Creatinine 1.10 Estimat Glomerular Filtration 49 Rate Random Glucose 94 Calcium Level 8.6 Phosphorus Level 3.1 Magnesium Level 2.2 Total Bilirubin 0.9 Direct Bilirubin 0.4 Indirect Bilirubin 0.5 Aspartate Amino Transf 179 (AST/SGOT) Alanine Aminotransferase 304 (ALT/SGPT) Alkaline Phosphatase 173 Total Protein 5.9 Albumin 3.0 Lipase 1042 Imaging Last Impressions Cholangiopancreatography MRI 02/05/17 0000 Signed Impressions: Service Date/Time: Sunday, February 05, 2017 17:14 - CONCLUSION: Multiseptated mass in the head of the pancreas in the region of the uncinate process with slight nodular enhancement adjacent to it. Underlying cystic neoplasm should be excluded such as IMPN. K. Jagdeep Choudhary MD Chest X-Ray 02/04/17724 Signed Impressions: Service Date/Time: January 07:55 - CONCLUSION: No acute intrathoracic disease.. Austin Reyna MD Abdomen/Pelvis CT 02/04/17724 Signed Impressions: Service Date/Time: January 09:42 - CONCLUSION: 1. Low density mass within the head and uncinate process of the pancreas measuring 3.7 x 2.6 x 5.3 cm which is suspicious for a pancreatic neoplasm until proven otherwise. MRI of the abdomen with contrast and MRCP may be helpful for further evaluation of this finding, if clinically indicated. There is dilatation of the main pancreatic duct as well as mild dilatation of the extrahepatic biliary system. 2. 5 mm calcified nonobstructing right renal calculus. 3. Right renal cysts. 4. Degenerative changes throughout the lumbar and lower thoracic spine. 5. Uncomplicated colonic diverticulosis. Kayden Talavera MD Physical Exam HEENT: PERRLA, normocephalic; atraumatic; no jaundice. Throat is clear. NECK: Neck is supple, no JVD, no lymphadenopathy. CHEST: CTA CARDIAC: RRR with no murmur gallop or rubs. ABDOMEN: Soft, nondistended, diffused tenderness; no hepatosplenomegaly; bowel sounds x 4 quadrants EXTREMITIES: No clubbing, cyanosis, or edema. SKIN: Normal; no rash; no jaundice. JIG BUILDER: No focal deficits; alert and oriented x 3 (Apolonia Aggarwal) Assessment and Plan Plan ASSESSMENT - Pancreatic head mass, patient presented with abdominal pain, nausea CEA 1.2 , CA19-9 19.1 S/P EUS on (02/05/17) --->Pancreatic head mass hypoechoic probable malignancy no lymphadenopathy and no vascular involvement FNA, cytology pending. Cholangiopancreatography MRI 02/05/17 Multiseptated mass in the head of the pancreas in the region of the uncinate process with slight nodular enhancement adjacent to it. Underlying cystic neoplasm should be excluded such as IMPN. CT showed pancreatic head mass, dilatation main pancreatic duct and extrahepatic biliary system. s/p cholecystectomy - Elevated LFTs- AST 417, ALT 254, ALK PHOS 175 (02/06), Trending down today, AST 179, ALT 304, ALK PHOS 173 (02/07) Possible secondary to procedure, will monitor - Elevated lipase - 1686 on admission, 02/06 3995, 02/07 1042. Denies hx pancreatitis, ETOH - Leukocytosis- Improving, WBC 9.8 today. PLAN - Low fat diet - Await FNA results - Supportive care - Lipase, LFTs, in am - Supportive care - Further recommendations to follow based on results of above Patient seen and examined by Dr. Westfall and myself and this note is written on his behalf. (Apolonia Aggarwal) Physician Comments Patient seen and examined Agree with above Continue with current supportive care Monitor labs Await pathology (Damon Westfall MD) Apolonia Aggarwal Feb 07, 2017 12:10 Damon Westfall MD Feb 07, 2017 20:46
[2017-02-07] MEDS: ENOXAPARIN SODIUM 40 MG/0.4 ML SYRINGE SQ SCH (13:20)
[2017-02-07] MEDS: ACETAMINOPHEN/HYDROcodone 325 MG/5 MG TAB PO PRN (23:14)
[2017-02-08] VITALS (8 sets, daily range): BP systolic 114–131; BP diastolic 56–70; PULSE 59–82; RESP 16–20; TEMP 96.4–98; O2SAT 98–100
[2017-02-08 07:05] LABS: AUTOMATED NEUTROPHIL # 6.3 TH/MM3 (1.8-7.7); BASOPHIL % 0.1 % (0.0-2.0); EOSINOPHIL # 0.1 TH/MM3 (0-0.4); EOSINOPHIL % 1.1 % (0.0-4.0); HEMATOCRIT 31.3 % (35.0-46.0); HEMO FLAGS DIFF FINAL; LYMPH % 10.1 % (9.0-44.0); LYMPHOCYTE # 0.8 TH/MM3 (1.0-4.8); MEAN CELL VOLUME 92.4 FL (80.0-100.0); MEAN CORPUSCULAR HEMOGLOBIN 31.6 PG (27.0-34.0); MEAN CORPUSCULAR HGB CONC 34.1 % (32.0-36.0); MONO % 7.1 % (0.0-8.0); NEUT % 81.6 % (16.0-70.0); PLATELET COUNT 255 TH/MM3 (150-450); RED BLOOD COUNT 3.39 MIL/MM3 (4.00-5.30); RED CELL DISTRIBUTION WIDTH 15.3 % (11.6-17.2); WHITE BLOOD COUNT 7.7 TH/MM3 (4.0-11.0)
[2017-02-08 07:27] LABS: ANION GAP 7 MEQ/L (5-15); AST (GOT) 51 U/L (15-37); BICARBONATE 26.6 MEQ/L (21.0-32.0); BLOOD UREA NITROGEN 20 MG/DL (7-18); CHLORIDE 107 MEQ/L (98-107); GLOMERULAR FILTRATION RATE 53 ML/MIN (>89); POTASSIUM 4.6 MEQ/L (3.5-5.1); SODIUM (NA) 141 MEQ/L (136-145)
[2017-02-08 07:28] LABS: ALT (GPT) 182 U/L (10-53)
[2017-02-08 07:30] LABS: ALKALINE PHOSPHATASE 140 U/L (45-117); TOTAL BILIRUBIN ADULT 0.5 MG/DL (0.2-1.0)
--- NOTE | 2017-02-08 08:16 | HHI.PR ---
Subjective Remarks Pt tells me her abdominal pain has resolved. denies any CP/SOB/N/V would like to have breakfast but hasn't yet received her tray Objective Vitals Vital Signs Date Time Temp Pulse Resp B/P Pulse Ox O2 Delivery O2 Flow Rate FiO2 02/08/17 04:46 63 02/08/17 04:00 97.0 61 16 131/70 98 02/08/17 00:13 59 02/07/17 23:57 97.3 64 18 115/64 99 02/07/17 20:12 99 02/07/17 20:00 97.4 81 18 127/75 98 02/07/17 16:00 97.3 68 18 108/58 99 02/07/17 12:41 98.3 73 18 108/64 98 02/07/17 09:00 74 02/07/17 08:43 98.0 63 18 133/70 98 I/O 02/07/17 02/07/17 02/07/17 02/08/17 02/08/17 02/08/17 06:59 14:59 22:59 06:59 14:59 22:59 Intake Total 120 ml 1060 ml 1170 ml 120 ml Balance 120 ml 1060 ml 1170 ml 120 ml Intake Oral 120 ml 240 ml 240 ml 120 ml IV Total 820 ml 930 ml # Voids 1 1 1 1 # Bowel Movements 0 2 0 0 Result Diagram: 02/08/17 0604 02/08/17 0604 Imaging Last Impressions Cholangiopancreatography MRI 02/05/17 0000 Signed Impressions: Service Date/Time: Sunday, February 05, 2017 17:14 - CONCLUSION: Multiseptated mass in the head of the pancreas in the region of the uncinate process with slight nodular enhancement adjacent to it. Underlying cystic neoplasm should be excluded such as IMPN. K. Jagdeep Choudhary MD Chest X-Ray 02/04/17724 Signed Impressions: Service Date/Time: January 07:55 - CONCLUSION: No acute intrathoracic disease.. Austin Reyna MD Abdomen/Pelvis CT 02/04/17724 Signed Impressions: Service Date/Time: January 09:42 - CONCLUSION: 1. Low density mass within the head and uncinate process of the pancreas measuring 3.7 x 2.6 x 5.3 cm which is suspicious for a pancreatic neoplasm until proven otherwise. MRI of the abdomen with contrast and MRCP may be helpful for further evaluation of this finding, if clinically indicated. There is dilatation of the main pancreatic duct as well as mild dilatation of the extrahepatic biliary system. 2. 5 mm calcified nonobstructing right renal calculus. 3. Right renal cysts. 4. Degenerative changes throughout the lumbar and lower thoracic spine. 5. Uncomplicated colonic diverticulosis. Kayden Talavera MD Objective Remarks GENERAL: Patient sitting up in bed. appears comfortable. SKIN: Warm and dry. HEAD: Normocephalic. EYES: EOMI NECK: Supple, trachea midline. CARDIOVASCULAR: Regular rate and rhythm without murmurs RESPIRATORY: Breath sounds equal bilaterally. No accessory muscle use. GASTROINTESTINAL: Abdomen soft, non-tender, nondistended. No rebound or guarding. MUSCULOSKELETAL: No cyanosis, or edema. A/P Problem List: (1) Acute pancreatitis ICD Code: K85.90 Status: Acute (2) Pancreatic mass ICD Code: K86.9 Status: Acute Assessment and Plan /Acute biliary pancreatitis likely due to underlying pancreatic mass. -Tolerating PO, off IVFs -02/05 An EUS with fine-needle aspiration performed on pancreatic mass highly suspicious of malignancy. -Continue pain control supportive care, awaiting biopsy result. CA-19-9 and CEA levels wnl, lipase trending down. -GI following. Appreciate assistance. //Hypertension, essentialuncontrolled on admission likely exacerbated by pain. -02/06. Blood pressure acceptable. Continue home antihypertensives. Continue Vasotec IV when necessary for any uncontrolled pain. //Leukocytosis. Resolved. Likely secondary to stress from EUS with FNA. //History of GERDcontinue PPI //Hypernatremia. Resolved. // DVT prophylaxisLovenox. Discharge Planning awaiting pathology report which is not yet available. will consult PT for eval and final recs as pt states that she feels a bit unsteady on her feet. awaiting final recs from GI Problem Qualifiers (1) Acute pancreatitis: Montse Garcia MD Feb 08, 2017 08:16
[2017-02-08] MEDS: DOCUSATE SODIUM 50 MG/SENNA 8.6 MG TAB PO SCH ×2 (09:00→20:13)
[2017-02-08] MEDS: amLODIPine BESYLATE 5 MG TAB PO SCH (09:36)
[2017-02-08] MEDS: PANTOPRAZOLE SOD 40 MG DELAYED RELEASE TAB PO SCH (09:36)
[2017-02-08] MEDS: LISINOPRIL 20 MG TAB PO SCH (09:36)
[2017-02-08] MEDS: HYDROCHLOROTHIAZIDE 12.5 MG CAP PO SCH (09:36)
[2017-02-08] MEDS: SODIUM CHLORIDE 0.9% FLUSH 10 ML FLUSH IV FLUSH SCH ×2 (09:38→20:13)
[2017-02-08] MEDS: ENOXAPARIN SODIUM 40 MG/0.4 ML SYRINGE SQ SCH (12:59)
--- NOTE | 2017-02-08 15:21 | HHI.GIFU ---
Subjective Remarks Pt sitting on edge of bed, eating. Son at bedside. Pt c/o back pain when she' s in bed. She still has some mild epigastric discomfort after eating but otherwise has improved. No nausea. Objective Vitals I&O Vital Signs Date Time Temp Pulse Resp B/P Pulse Ox O2 Delivery O2 Flow Rate FiO2 02/08/17 12:33 96.4 59 20 126/59 100 02/08/17 08:47 98.0 60 19 125/58 98 02/08/17 04:46 63 02/08/17 04:00 97.0 61 16 131/70 98 02/08/17 00:13 59 02/07/17 23:57 97.3 64 18 115/64 99 02/07/17 20:12 99 02/07/17 20:00 97.4 81 18 127/75 98 02/07/17 16:00 97.3 68 18 108/58 99 I/O 02/07/17 02/07/17 02/07/17 02/08/17 02/08/17 02/08/17 07:00 15:00 23:00 07:00 15:00 23:00 Intake Total 120 ml 1060 ml 1170 ml 120 ml 255 ml Balance 120 ml 1060 ml 1170 ml 120 ml 255 ml Intake Oral 120 ml 240 ml 240 ml 120 ml 255 ml IV Total 820 ml 930 ml # Voids 1 1 1 1 3 # Bowel Movements 0 2 0 0 1 Laboratory Laboratory Tests Test 02/08/17 06:04 White Blood Count 7.7 Red Blood Count 3.39 Hemoglobin 10.7 Hematocrit 31.3 Mean Corpuscular Volume 92.4 Mean Corpuscular Hemoglobin 31.6 Mean Corpuscular Hemoglobin 34.1 Concent Red Cell Distribution Width 15.3 Platelet Count 255 Mean Platelet Volume 8.3 Neutrophils (%) (Auto) 81.6 Lymphocytes (%) (Auto) 10.1 Monocytes (%) (Auto) 7.1 Eosinophils (%) (Auto) 1.1 Basophils (%) (Auto) 0.1 Neutrophils # (Auto) 6.3 Lymphocytes # (Auto) 0.8 Monocytes # (Auto) 0.5 Eosinophils # (Auto) 0.1 Basophils # (Auto) 0.0 CBC Comment DIFF FINAL Differential Comment Sodium Level 141 Potassium Level 4.6 Chloride Level 107 Carbon Dioxide Level 26.6 Anion Gap 7 Blood Urea Nitrogen 20 Creatinine 1.02 Estimat Glomerular Filtration 53 Rate Random Glucose 93 Calcium Level 8.5 Total Bilirubin 0.5 Aspartate Amino Transf 51 (AST/SGOT) Alanine Aminotransferase 182 (ALT/SGPT) Alkaline Phosphatase 140 Total Protein 5.7 Albumin 2.8 Imaging Last Impressions Cholangiopancreatography MRI 02/05/17 0000 Signed Impressions: Service Date/Time: Sunday, February 05, 2017 17:14 - CONCLUSION: Multiseptated mass in the head of the pancreas in the region of the uncinate process with slight nodular enhancement adjacent to it. Underlying cystic neoplasm should be excluded such as IMPN. K. Jagdeep Choudhary MD Chest X-Ray 02/04/17724 Signed Impressions: Service Date/Time: January 07:55 - CONCLUSION: No acute intrathoracic disease.. Austin Reyna MD Abdomen/Pelvis CT 02/04/17724 Signed Impressions: Service Date/Time: January 09:42 - CONCLUSION: 1. Low density mass within the head and uncinate process of the pancreas measuring 3.7 x 2.6 x 5.3 cm which is suspicious for a pancreatic neoplasm until proven otherwise. MRI of the abdomen with contrast and MRCP may be helpful for further evaluation of this finding, if clinically indicated. There is dilatation of the main pancreatic duct as well as mild dilatation of the extrahepatic biliary system. 2. 5 mm calcified nonobstructing right renal calculus. 3. Right renal cysts. 4. Degenerative changes throughout the lumbar and lower thoracic spine. 5. Uncomplicated colonic diverticulosis. Kayden Talavera MD Physical Exam HEENT: PERRLA, normocephalic; atraumatic; no jaundice. Throat is clear. NECK: Neck is supple, no JVD, no lymphadenopathy. CHEST: CTA CARDIAC: RRR with no murmur gallop or rubs. ABDOMEN: Soft, nondistended, epigastric TTP mild; no hepatosplenomegaly; bowel sounds x 4 quadrants EXTREMITIES: No clubbing, cyanosis, or edema. SKIN: Normal; no rash; no jaundice. 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 Cholangiopancreatography MRI 02/05/17 Multiseptated mass in the head of the pancreas in the region of the uncinate process with slight nodular enhancement adjacent to it. Underlying cystic neoplasm should be excluded such as IMPN. CT showed pancreatic head mass, dilatation main pancreatic duct and extrahepatic biliary system. s/p cholecystectomy - Elevated LFTs- AST 417, ALT 254, ALK PHOS 175 (02/06), Trending down Possible secondary to procedure, will monitor - Elevated lipase - 1686 on admission, 02/06 3995, 02/07 1042. Denies hx pancreatitis, ETOH - Leukocytosis- Improved PLAN - Low fat diet - Await FNA results - Supportive care - Lipase, LFTs, in am - Supportive care - Further recommendations to follow based on results of above Patient seen and examined by Dr. Yanes and myself and this note is written on his behalf. Sophia Gaines Feb 08, 2017 15:21
[2017-02-08] MEDS: ACETAMINOPHEN/HYDROcodone 325 MG/5 MG TAB PO PRN ×2 (15:51→20:13)
[2017-02-09] VITALS (8 sets, daily range): BP systolic 98–116; BP diastolic 54–67; PULSE 55–120; RESP 17–18; TEMP 97.4–98.6; O2SAT 94–99
[2017-02-09 08:22] LABS: ALT (GPT) 131 U/L (10-53); ANION GAP 6 MEQ/L (5-15); AST (GOT) 21 U/L (15-37); BICARBONATE 27.6 MEQ/L (21.0-32.0); BLOOD UREA NITROGEN 26 MG/DL (7-18); CHLORIDE 105 MEQ/L (98-107); GLOMERULAR FILTRATION RATE 46 ML/MIN (>89); POTASSIUM 4.8 MEQ/L (3.5-5.1); SODIUM (NA) 139 MEQ/L (136-145)
[2017-02-09 08:24] LABS: ALKALINE PHOSPHATASE 125 U/L (45-117); TOTAL BILIRUBIN ADULT 0.5 MG/DL (0.2-1.0)
--- NOTE | 2017-02-09 08:57 | HHI.PR ---
Subjective Remarks Patient feeling well today. Denies any pain at this time. Currently eating breakfast. Tells me her blood pressure was a little bit low last night and she felt a little dizzy however this has resolved. She is hopeful she can go home today. She does have a primary care doctor in [place] and that she sees regularly. Objective Vitals Vital Signs Date Time Temp Pulse Resp B/P Pulse Ox O2 Delivery O2 Flow Rate FiO2 02/09/17 04:04 62 02/09/17 04:00 98.1 65 17 114/56 97 02/09/17 00:00 97.5 65 17 98/54 98 02/09/17 00:00 55 02/08/17 20:26 60 02/08/17 20:00 97.1 64 17 128/60 100 02/08/17 16:36 98.0 82 20 114/56 99 02/08/17 12:33 96.4 59 20 126/59 100 I/O 02/08/17 02/08/17 02/08/17 02/09/17 02/09/17 02/09/17 06:59 14:59 22:59 06:59 14:59 22:59 Intake Total 120 ml 255 ml Balance 120 ml 255 ml Intake Oral 120 ml 255 ml # Voids 1 3 2 # Bowel Movements 0 1 Result Diagram: 02/08/17 0604 02/09/17 0636 Imaging Last Impressions Cholangiopancreatography MRI 02/05/17 0000 Signed Impressions: Service Date/Time: Sunday, February 05, 2017 17:14 - CONCLUSION: Multiseptated mass in the head of the pancreas in the region of the uncinate process with slight nodular enhancement adjacent to it. Underlying cystic neoplasm should be excluded such as IMPN. K. Jagdeep Choudhary MD Chest X-Ray 02/04/17724 Signed Impressions: Service Date/Time: January 07:55 - CONCLUSION: No acute intrathoracic disease.. Austin Reyna MD Abdomen/Pelvis CT 02/04/17724 Signed Impressions: Service Date/Time: January 09:42 - CONCLUSION: 1. Low density mass within the head and uncinate process of the pancreas measuring 3.7 x 2.6 x 5.3 cm which is suspicious for a pancreatic neoplasm until proven otherwise. MRI of the abdomen with contrast and MRCP may be helpful for further evaluation of this finding, if clinically indicated. There is dilatation of the main pancreatic duct as well as mild dilatation of the extrahepatic biliary system. 2. 5 mm calcified nonobstructing right renal calculus. 3. Right renal cysts. 4. Degenerative changes throughout the lumbar and lower thoracic spine. 5. Uncomplicated colonic diverticulosis. Kayden Talavera MD Objective Remarks GENERAL: Patient sitting up on the side of the bed eating breakfast. appears comfortable. SKIN: Warm and dry. HEAD: Normocephalic. EYES: EOMI NECK: Supple, trachea midline. CARDIOVASCULAR: Regular rate and rhythm without murmurs RESPIRATORY: Breath sounds equal bilaterally. No accessory muscle use. GASTROINTESTINAL: Abdomen soft, non-tender, nondistended. MUSCULOSKELETAL: No cyanosis, or edema. A/P Problem List: (1) Acute pancreatitis ICD Code: K85.90 Status: Acute (2) Pancreatic mass ICD Code: K86.9 Status: Acute Assessment and Plan /Acute biliary pancreatitis likely due to underlying pancreatic mass. -Tolerating PO, off IVFs -02/05 An EUS with fine-needle aspiration performed on pancreatic mass highly suspicious of malignancy. -Continue pain control supportive care, FNA showed mucus and rare possible ductal cells. Nondiagnostic. Cytology at this time is pending. CA-19-9 and CEA levels wnl, lipase trending down. -GI following. They will evaluate patient later today and make final recommendations. //Hypertension, essentialuncontrolled on admission likely exacerbated by pain. -02/06. Blood pressure acceptable. Continue home antihypertensives. Continue Vasotec IV when necessary for any uncontrolled pain. //Leukocytosis. Resolved. Likely secondary to stress from EUS with FNA. //History of GERDcontinue PPI //Hypernatremia. Resolved. // DVT prophylaxisLovenox. Discharge Planning Cytology pending. FNA results are non diagnostic awaiting final recs from GI Per physical therapy, she will require a wheeled walker and home health PT as needed. Problem Qualifiers (1) Acute pancreatitis: Montse Garcia MD Feb 09, 2017 08:56
--- NOTE | 2017-02-09 08:58 | HHI.FF ---
Face to Face Verification Diagnosis: (1) Pancreatic mass (2) Acute pancreatitis (3) Physical deconditioning Physical Therapy Order: Evaluate and Treat I have seen patient Julia Bloom on 02/09/17. My clinical findings support the need for the requested home health care services because: Patient evaluated here in the hospital and physical therapy recommended home health PT Deconditioned w/ increased weakness I certify that my clinical findings support that this patient is homebound because:Patient evaluated here in the hospital and physical therapy recommended home health PT Unsteady gait/balance Montse Garcia MD Feb 09, 2017 08:58
[2017-02-09] MEDS: HYDROCHLOROTHIAZIDE 12.5 MG CAP PO SCH (09:00)
[2017-02-09] MEDS: LISINOPRIL 20 MG TAB PO SCH (09:00)
[2017-02-09] MEDS: amLODIPine BESYLATE 5 MG TAB PO SCH (09:00)
[2017-02-09] MEDS: DOCUSATE SODIUM 50 MG/SENNA 8.6 MG TAB PO SCH ×2 (09:07→21:24)
[2017-02-09] MEDS: PANTOPRAZOLE SOD 40 MG DELAYED RELEASE TAB PO SCH (09:07)
[2017-02-09] MEDS: SODIUM CHLORIDE 0.9% FLUSH 10 ML FLUSH IV FLUSH SCH ×2 (09:09→21:28)
--- NOTE | 2017-02-09 10:35 | HHI.GIFU ---
Subjective Remarks Attempted to use [employer], but was unable to connect. 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 Pt is not having any nausea, vomiting, or abdominal pain and would like to go home. Daughter reports that her mother lives alone with her sister and is worried that she will not FU for biopsy results and would like to wait for biopsy results before discharge. ([place] Roma Marycruz LEANA) Objective Vitals I&O Vital Signs Date Time Temp Pulse Resp B/P Pulse Ox O2 Delivery O2 Flow Rate FiO2 02/09/17 08:00 97.8 74 18 115/62 99 02/09/17 04:04 62 02/09/17 04:00 98.1 65 17 114/56 97 02/09/17 00:00 97.5 65 17 98/54 98 02/09/17 00:00 55 02/08/17 20:26 60 02/08/17 20:00 97.1 64 17 128/60 100 02/08/17 16:36 98.0 82 20 114/56 99 02/08/17 12:33 96.4 59 20 126/59 100 I/O 02/08/17 02/08/17 02/08/17 02/09/17 02/09/17 02/09/17 07:00 15:00 23:00 07:00 15:00 23:00 Intake Total 120 ml 255 ml Balance 120 ml 255 ml Intake Oral 120 ml 255 ml # Voids 1 3 2 # Bowel Movements 0 1 Laboratory Laboratory Tests Test 02/09/17 06:36 Sodium Level 139 Potassium Level 4.8 Chloride Level 105 Carbon Dioxide Level 27.6 Anion Gap 6 Blood Urea Nitrogen 26 Creatinine 1.16 Estimat Glomerular Filtration 46 Rate Random Glucose 87 Calcium Level 9.0 Total Bilirubin 0.5 Aspartate Amino Transf 21 (AST/SGOT) Alanine Aminotransferase 131 (ALT/SGPT) Alkaline Phosphatase 125 Total Protein 6.3 Albumin 3.2 Lipase 248 Imaging Last Impressions Cholangiopancreatography MRI 02/05/17 0000 Signed Impressions: Service Date/Time: Sunday, February 05, 2017 17:14 - CONCLUSION: Multiseptated mass in the head of the pancreas in the region of the uncinate process with slight nodular enhancement adjacent to it. Underlying cystic neoplasm should be excluded such as IMPN. K. Jagdeep Choudhary MD Chest X-Ray 02/04/17724 Signed Impressions: Service Date/Time: January 07:55 - CONCLUSION: No acute intrathoracic disease.. Austin Reyna MD Abdomen/Pelvis CT 02/04/17724 Signed Impressions: Service Date/Time: January 09:42 - CONCLUSION: 1. Low density mass within the head and uncinate process of the pancreas measuring 3.7 x 2.6 x 5.3 cm which is suspicious for a pancreatic neoplasm until proven otherwise. MRI of the abdomen with contrast and MRCP may be helpful for further evaluation of this finding, if clinically indicated. There is dilatation of the main pancreatic duct as well as mild dilatation of the extrahepatic biliary system. 2. 5 mm calcified nonobstructing right renal calculus. 3. Right renal cysts. 4. Degenerative changes throughout the lumbar and lower thoracic spine. 5. Uncomplicated colonic diverticulosis. Kayden Talavera MD Physical Exam HEENT: PERRLA, normocephalic; atraumatic; no jaundice. CHEST: CTA CARDIAC: RRR with no murmur gallop or rubs. ABDOMEN: Soft, nondistended, nontender; no hepatosplenomegaly; bowel sounds x 4 quadrants EXTREMITIES: No clubbing, cyanosis, or edema. SKIN: Normal; no rash; no jaundice. 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 Abdomen/Pelvis CT (02/04/17)----> 1. Low density mass within the head and uncinate process of the pancreas measuring 3.7 x 2.6 x 5.3 cm which is suspicious for a pancreatic neoplasm until proven otherwise. MRI of the abdomen with contrast and MRCP may be helpful for further evaluation of this finding, if clinically indicated. There is dilatation of the main pancreatic duct as well as mild dilatation of the extrahepatic biliary system. 2. 5 mm calcified nonobstructing right renal calculus. 3. Right renal cysts. 4. Degenerative changes throughout the lumbar and lower thoracic spine. 5. Uncomplicated colonic diverticulosis. MRCP (02/05/17)---> Multiseptated mass in the head of the pancreas in the region of the uncinate process with slight nodular enhancement adjacent to it. Underlying cystic neoplasm should be excluded such as IMPN. CEA 1.2, CA19-9 19.1. S/P pancreatic head mass biopsy (02/05), nondiagnostic. S/P EUS on (02/05/17) --->Pancreatic head mass hypoechoic probable malignancy no lymphadenopathy and no vascular involvement. FNA for cytology pending. Spoke to daughter- she is concerned that patient will not follow up and does not want patient discharged today if possible- states pt lives alone with sister and likely will not follow up. - Pancreatitis. IMPROVED. Lipase normalized. No n/v/pain at this time. Tolerating diet. - Elevated LFTs. Improving. T. Bili 0.5, AST 21, ALT 131, Alk Phosph 125. These were normal prior to procedure, likely post procedure related. - Leukocytosis. Improved. - GERD. PPI - Hypernatremia, HTN per attending. PLAN - Low fat diet - Await FNA results - Monitor labs - Further recommendations to follow based on results of above - Supportive care - Would hold on discharge if possible to see if we get results from FNA today, as daughter is concerned that patient will not follow up as outpatient - Pt seen and examined by Dr. Yanes and myself and this note is written on her behalf ([place]) Physician Comments seen, examined agree with above discussed with daughter Ig4 level (Jesusita Yanes MD) [place] Feb 09, 2017 10:34 Jesusita Yanes MD Feb 09, 2017 15:05
[2017-02-09] MEDS: ENOXAPARIN SODIUM 40 MG/0.4 ML SYRINGE SQ SCH (13:52)
[2017-02-09] MEDS: BISACODYL 10 MG SUPP RECTAL PRN (21:24)
[2017-02-10] VITALS (9 sets, daily range): BP systolic 89–145; BP diastolic 58–68; PULSE 57–88; RESP 14–18; TEMP 96.2–99.1; O2SAT 94–100
[2017-02-10] MEDS ORDERED: GETGO ROLLING W1 MI1 (08:54)
[2017-02-10] MEDS ORDERED: HYDR-3580 PO (08:54)
[2017-02-10] MEDS: amLODIPine BESYLATE 5 MG TAB PO SCH (09:00)
[2017-02-10] MEDS: HYDROCHLOROTHIAZIDE 12.5 MG CAP PO SCH (09:00)
[2017-02-10] MEDS: LISINOPRIL 20 MG TAB PO SCH (09:00)
[2017-02-10] MEDS: PANTOPRAZOLE SOD 40 MG DELAYED RELEASE TAB PO SCH (09:19)
[2017-02-10] MEDS: SODIUM CHLORIDE 0.9% FLUSH 10 ML FLUSH IV FLUSH SCH (09:19)
[2017-02-10] MEDS: DOCUSATE SODIUM 50 MG/SENNA 8.6 MG TAB PO SCH (09:19)
--- NOTE | 2017-02-10 09:48 | HHI.PR ---
Subjective Remarks Patient seen with nursing, follow-up for hypertension and pancreatic Mass. No abdominal pain no nausea or vomiting. No dizziness. Dizziness from yesterday resolved. Patient's son who was on the phone help with interpretation. Answered all questions. Objective Vitals Vital Signs Date Time Temp Pulse Resp B/P Pulse Ox O2 Delivery O2 Flow Rate FiO2 02/10/17 08:00 99.1 76 16 117/59 94 02/10/17 04:13 67 02/10/17 04:00 98.5 70 18 106/58 98 02/10/17 00:09 74 02/10/17 00:00 97.2 88 17 106/65 94 02/09/17 20:11 67 02/09/17 20:00 97.4 120 17 109/59 94 02/09/17 16:00 98.5 70 18 110/64 99 02/09/17 12:00 98.6 77 18 116/67 99 I/O 02/09/17 02/09/17 02/09/17 02/10/17 02/10/17 02/10/17 06:59 14:59 22:59 06:59 14:59 22:59 Intake Total 240 ml Output Total 300 ml Balance 240 ml -300 ml Intake Oral 240 ml Output Urine Total 300 ml # Voids 2 3 # Bowel Movements 0 1 Result Diagram: 02/08/17 0604 02/09/17 0636 Objective Remarks GENERAL: Not in distress SKIN: Warm and dry. CARDIOVASCULAR: Regular rate and rhythm without murmurs RESPIRATORY: Breath sounds equal bilaterally. No accessory muscle use. GASTROINTESTINAL: Abdomen soft, non-tender, nondistended. Alert, awake, moves extremities. A/P Problem List: (1) Acute pancreatitis ICD Code: K85.90 Status: Acute (2) Pancreatic mass ICD Code: K86.9 Status: Acute Assessment and Plan This is a 76-year-old female who came in with abdominal pain. cute biliary pancreatitis likely due to underlying pancreatic mass. -Tolerating PO, -02/05 An EUS with fine-needle aspiration performed on pancreatic mass highly suspicious of malignancy. FNA showed mucus and rare possible ductal cells. Nondiagnostic. Cytology acellular and nondiagnostic. CA-19-9 and CEA levels wnl, lipase went back to normal. Pain is controlled. GI is following, recommended oncology evaluation. Hypertension, essentialuncontrolled on admission likely exacerbated by pain. -02/06. Blood pressure acceptable. Continue home antihypertensives, but since blood pressure soft with dizziness, stop hydrochlorothiazide. Leukocytosis. Resolved. Likely secondary to stress from EUS with FNA. History of GERDcontinue PPI Hypernatremia. Resolved. DVT prophylaxisLovenox. Discharge Planning Discharged with home health care today after seen and cleared by oncology. Problem Qualifiers (1) Acute pancreatitis: Fransisco Wood MD Feb 10, 2017 09:48
[2017-02-10] MEDS: ENOXAPARIN SODIUM 40 MG/0.4 ML SYRINGE SQ SCH (11:45)
--- NOTE | 2017-02-10 16:03 | HHI.GIFU ---
Subjective Remarks Pt sitting in chair, asking to go home. No abd pain, nausea. (Sophia Gaines SENIOR INTEGRATION ARCHITECT) Objective Vitals I&O Vital Signs Date Time Temp Pulse Resp B/P Pulse Ox O2 Delivery O2 Flow Rate FiO2 02/10/17 15:25 71 02/10/17 12:00 98.0 82 14 89/68 100 02/10/17 10:38 57 02/10/17 08:00 99.1 76 16 117/59 94 02/10/17 04:13 67 02/10/17 04:00 98.5 70 18 106/58 98 02/10/17 00:09 74 02/10/17 00:00 97.2 88 17 106/65 94 02/09/17 20:11 67 02/09/17 20:00 97.4 120 17 109/59 94 02/09/17 16:00 98.5 70 18 110/64 99 I/O 02/09/17 02/09/17 02/09/17 02/10/17 02/10/17 02/10/17 07:00 15:00 23:00 07:00 15:00 23:00 Intake Total 240 ml 227 ml Output Total 300 ml Balance 240 ml -300 ml 227 ml Intake Oral 240 ml 227 ml Output Urine Total 300 ml # Voids 2 3 2 # Bowel Movements 0 1 Imaging Last Impressions Cholangiopancreatography MRI 02/05/17 0000 Signed Impressions: Service Date/Time: Sunday, February 05, 2017 17:14 - CONCLUSION: Multiseptated mass in the head of the pancreas in the region of the uncinate process with slight nodular enhancement adjacent to it. Underlying cystic neoplasm should be excluded such as IMPN. K. Jagdeep Choudhary MD Chest X-Ray 02/04/17724 Signed Impressions: Service Date/Time: January 07:55 - CONCLUSION: No acute intrathoracic disease.. Austin Reyna MD Abdomen/Pelvis CT 02/04/17724 Signed Impressions: Service Date/Time: January 09:42 - CONCLUSION: 1. Low density mass within the head and uncinate process of the pancreas measuring 3.7 x 2.6 x 5.3 cm which is suspicious for a pancreatic neoplasm until proven otherwise. MRI of the abdomen with contrast and MRCP may be helpful for further evaluation of this finding, if clinically indicated. There is dilatation of the main pancreatic duct as well as mild dilatation of the extrahepatic biliary system. 2. 5 mm calcified nonobstructing right renal calculus. 3. Right renal cysts. 4. Degenerative changes throughout the lumbar and lower thoracic spine. 5. Uncomplicated colonic diverticulosis. Kayden Talavera MD Physical Exam HEENT: PERRLA, normocephalic; atraumatic; no jaundice. CHEST: CTA CARDIAC: RRR with no murmur gallop or rubs. ABDOMEN: Soft, nondistended, nontender; no hepatosplenomegaly; bowel sounds x 4 quadrants EXTREMITIES: No clubbing, cyanosis, or edema. SKIN: Normal; no rash; no jaundice. 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 Abdomen/Pelvis CT (02/04/17)----> 1. Low density mass within the head and uncinate process of the pancreas measuring 3.7 x 2.6 x 5.3 cm which is suspicious for a pancreatic neoplasm until proven otherwise. MRI of the abdomen with contrast and MRCP may be helpful for further evaluation of this finding, if clinically indicated. There is dilatation of the main pancreatic duct as well as mild dilatation of the extrahepatic biliary system. 2. 5 mm calcified nonobstructing right renal calculus. 3. Right renal cysts. 4. Degenerative changes throughout the lumbar and lower thoracic spine. 5. Uncomplicated colonic diverticulosis. MRCP (02/05/17)---> Multiseptated mass in the head of the pancreas in the region of the uncinate process with slight nodular enhancement adjacent to it. Underlying cystic neoplasm should be excluded such as IMPN. CEA 1.2, CA19-9 19.1. S/P pancreatic head mass biopsy (02/05), nondiagnostic. S/P EUS on (02/05/17) --->Pancreatic head mass hypoechoic probable malignancy no lymphadenopathy and no vascular involvement. FNA nondiagnostic. Oncology consult pending - Pancreatitis. IMPROVED. Lipase normalized. No n/v/pain at this time. Tolerating diet. - Elevated LFTs. trending down These were normal prior to procedure, likely post procedure related. - Leukocytosis. Improved. - GERD. PPI - Hypernatremia, HTN per attending. PLAN - Low fat diet - Monitor labs - await oncology consult - Supportive care - ok for d/c from GI standpoint after oncology consult - Pt seen and examined by Dr. Yanes and myself and this note is written on her behalf (Sophia Gaines) Physician Comments seen, examined agree with above ok to dc home from gi point [facility] office in 1-2 weeks may need pet ct vs repeat eus await oncology eval (Jesusita Yanes MD) Sophia Gaines Feb 10, 2017 16:03 Jesusita Yanes MD Feb 10, 2017 17:01
--- NOTE | 2017-02-11 06:32 | MB ---
cc: JOHN MITCHELL DATE OF CONSULTATION February 10, 2017 REASON FOR CONSULTATION Patient with a pancreatic head mass. HISTORY OF PRESENT ILLNESS This is 76-year-old female who presented to the emergency room with abdominal pain. This was an epigastric pain which radiated to his right side, to the back. She has had undergone cholecystectomy in the past. Other medical problems include hypertension and osteoarthritis. The patient underwent a CT scan of the abdomen and pelvis which revealed a low density mass within the head and uncinate process of the pancreas measuring 3.7 x 2.6 x 5.3 cm which was suspicious for pancreatic neoplasm. There was also dilatation of the main pancreatic duct as well as mild dilatation of the extrahepatic biliary system. The patient subsequently underwent MRCP which showed a multi-septated mass in the head of the pancreas in the region of the uncinate process with slight nodular enhancement. The patient was seen by Gastroenterology. 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 The patient's CEA level was 1.2 and CA19-9 was 19.1. She underwent pancreatic head mass biopsy on 02/05/2017. This was a fine-needle aspiration biopsy and it was nondiagnostic. The cytology was also nondiagnostic. The patient subsequently underwent an endoscopic ultrasound on 02/05/2017. This appeared to be a hypoechoic mass which appeared to be malignant. There was no lymphadenopathy and no vascular invasion. The FNA was nondiagnostic. I have been consulted to make further recommendations. The patient's abdominal pain has completely resolved. She denies any constitutional B symptoms. She has not had any nausea, vomiting, fevers or chills. No abdominal pain. She has not had any unintentional weight loss. REVIEW OF SYSTEMS A comprehensive 14-point review of systems was completed which is negative except as described in the HPI. PAST MEDICAL HISTORY 1. Hypertension. 2. Osteoarthritis. PAST SURGICAL HISTORY 1. History of cholecystectomy. 2. Endoscopic ultrasound with biopsy and fine needle aspiration biopsy. FAMILY HISTORY Reviewed and is noncontributory to this admission. SOCIAL HISTORY She does she does not drink alcohol. No illicit drug use. No tobacco abuse. MEDICATIONS Reviewed in the EMR. ALLERGIES He is allergic to CONTRAST MEDIA/IODINE. PHYSICAL EXAMINATION VITAL SIGNS: Blood pressure is 145/60, pulse in the 70s, temperature is 99, O2 sats are 100% percent on room air. GENERAL: A well-developed, well-nourished elderly female in no apparent distress. HEENT: Pupils are equal and reactive to light. EOMI. No oral thrush. No oral lesion. NECK: Supple. No JVD, no bruits. No lymphadenopathy. CHEST: Clear to auscultation bilaterally. CARDIAC: S1-S2, regular rate and rhythm. ABDOMEN: Soft, nontender, nondistended. Bowel sounds are present. EXTREMITIES: Without any edema, erythema or cyanosis. SKIN: Without any petechiae, lesion or bruises. NEURO: No focal deficits. PSYCHIATRIC: Mood and affect appropriate. LABORATORY DATA WBC 7.7, hemoglobin 10.7, platelet count 255. Serum chemistries show sodium of 139, potassium 4.8, chloride 105, CO2 27.6, BUN 26, creatinine 1.16, total bilirubin is 0.5, AST 21, ALT is 131, alk phos is 125, total protein is 6.3, albumin is 3.2, lipase is 248. IMAGING STUDIES Reviewed in the EMR. ASSESSMENT AND PLAN This is a 76-year-old female who presented with abdominal pain. She had an abdominal CT scan which showed a pancreatic mass in the uncinate process. This is a low density mass which is 3.7 x 2.6 x 5.3 cm. The patient underwent fine-needle aspiration biopsy which was nondiagnostic. She subsequently had an endoscopic ultrasound which was nondiagnostic as well. It appears that the mass was limited to the pancreas without any involvement of adjacent lymph nodes or structures. I had a long discussion with the patient's son who was present during this evaluation. I have explained to him that the biopsies thus far have been nondiagnostic. However, further workup needs to be completed. Interestingly, the tumor markers have come back negative and the biopsies have been nondiagnostic. I believe the next test should be to obtain a PET scan to see if this is hypermetabolic. This can be completed in the outpatient setting. If this lesion is hypermetabolic, I would refer this patient to Surgical Oncology for resection of the mass. The patient is insistent on being discharged from the hospital. They appear to be motivated to be seen in the clinic so I think it would be reasonable to go ahead and discharge this patient. I will see this patient in my clinic in [id number] weeks. We will obtain a PET/CT scan. 2. Mild anemia. Further workup can be completed outpatient. Thank you for allowing me to participate in the care of this patient. I will continue to follow this patient along. MD SHERRELL De La Vega/SSB /12:31 AM /6:13 AM
== END 2017-02-10 20:58 | disposition home health service (06) | DRG 439 ==
LOC: NEPE 06:41 → NEDA 15:02 → HOCA 17:45
PROVIDERS: ADMIT Hospitalist; ATTEND Hospitalist
PROC: 0FBG4ZX Excision of Pancreas, Percutaneous Endoscopic Approach, Diagnostic (ICD-10-PCS; principal; 2017-02-05 10:30)
DX: K85.10 Biliary acute pancreatitis without necrosis or infection (principal); N17.9 Acute kidney failure, unspecified; E87.0 Hyperosmolality and hypernatremia; D64.9 Anemia, unspecified; K86.89 Other specified diseases of pancreas; I10 Essential (primary) hypertension; K59.00 Constipation, unspecified; J45.909 Unspecified asthma, uncomplicated; K21.9 Gastro-esophageal reflux disease without esophagitis; Z96.653 Presence of artificial knee joint, bilateral; M19.90 Unspecified osteoarthritis, unspecified site; K57.30 Diverticulosis of large intestine without perforation or abscess without bleeding; F32.9 Major depressive disorder, single episode, unspecified
CPT/HCPCS: 43242; 71010; 74176; 74183; 76377; 80048; 80053; 80069; 80076; 81001; 82378; 82550; 82784; 82787; 83690; 83735; 84484; 85025; 85027; 86301; 88112; 88173; 88305; 93005; 96361; 96372; 96374; A9577; J1650; J1956; J2270; J2405; J7030; J7120; Q0169; Q9963